=== PATIENT | male | born 1985 | race Caucasian/White ===

== ENCOUNTER 2016-05-05 17:59 | Emergency (ER) | payer BC ==
[2016-05-05 18:23] VITALS: BP 122/73; PULSE 111; TEMP 98.3; BMI 26.4
--- NOTE | 2016-05-05 19:15 | PDOC ---
[id number] LIKE SYMPTOMS Time Seen by Provider: 05/05/16 18:50 History Source: Patient Exam Limitations: No Limitations - History of Present Illness Initial Comments: CHIEF COMPLAINT: 30 y/o afebrile male with 1 prior episode of UTI c/o frequent urination and hematuria for the past few days. HISTORY OF PRESENT ILLNESS: The patient made an appointment to see his urologist but he's away until next sunday. The patient did not want to wait that long to be seen. he is not concerned for STDs. he denies f/c, n/v/d, CP, SOB, abd pain, flank pain, back pain, abnormal penile discharge, testicular pain /swelling. Vital signs on arrival are notable for pulse of 111. REVIEW OF SYSTEMS: GENERAL/CONSTITUTIONAL: No fever/chills. No weakness. No weight change. HEAD, EYES, EARS, NOSE AND THROAT: No change in vision. No ear pain or discharge. No sore throat. CARDIOVASCULAR: No chest pain or shortness of breath. RESPIRATORY: No cough, wheezing, or hemoptysis. GASTROINTESTINAL: No abd pain, nausea, vomiting, diarrhea. GENITOURINARY: +increased urinary frequency and hematuria. No dysuria. MUSCULOSKELETAL: No joint or muscle swelling or pain. No neck or back pain. SKIN: No rash or easy bruising. NEUROLOGIC: No headache, vertigo, loss of consciousness, or loss of sensation. PHYSICAL EXAM: GENERAL: The patient is awake, alert, and fully oriented, in no acute distress. He is well appearing and ambulatory. HEAD: Normal with no signs of trauma. ENT: Pupils equal, round and reactive to light, extraocular movements intact, sclera anicteric, conjunctiva clear. Neck supple. LUNGS: Clear to auscultation bilaterally. Normal excursion. No respiratory distress or use of accessory muscles. CV: RRR, S1/S2, no MRG. Cap refill < 2 sec. ABDOMEN: Soft, non-distended, non-tender even to deep palpation, no hepatomegaly or splenomegaly, no masses. BACK: No CVA TTP b/l. EXTREMITIES: Normal range of motion, no edema. NEUROLOGICAL: Normal speech, normal gait. CN II-XII grossly intact. PSYCH: Normal mood, normal affect. SKIN: Warm, dry, normal turgor, no rashes or lesions noted. Past History - Past Medical History Allergies/Adverse Reactions: Allergies Allergy/AdvReac Type Severity Reaction Status Date / Time No Known Allergies Allergy Verified 05/05/16 18:19 Home Medications: Ambulatory Orders No Home Medications 0 dose .ROUTE UTDICT 07/06/12 Oxycodone HCl/Acetaminophen [Percocet 5-325 mg Tablet] 2 tab PO Q4H #30 tablet 07/16/14 Cardiac Disorders: No CVA: No Suicide Attempt (Hx): No Other medical history: DENIES. - Surgical History Orthopedic Surgery: Yes (LEFT KNEE ARTHROSCOPY) - Psycho/Social/Smoking Cessation Hx Suicidal Ideation: No Smoking Status: No Smoking History: Never smoked Have you smoked in the past 12 months: No Number of Cigarettes Smoked Daily: 0 Hx Alcohol Use: Yes (SOCIALY) Drug/Substance Use Hx: No Substance Use Type: Alcohol *Physical Exam - Vital Signs Last Vital Signs Temp Pulse Resp BP Pulse Ox 98.3 F 111 H 19 122/73 97 05/05/16 18:20 05/05/16 18:20 05/05/16 18:20 05/05/16 18:20 05/05/16 18:20 Medical Decision Making - Medical Decision Making A/P: 30 y/o male with increased urinary frequency and hematuria for the past few days. Plan is as follows: 1. UA/culture 2. GC/chlamydia UA negative for UTI. Pt does not want GC/Chlamydia prophylaxis. Suggested Urology follow up. The patient verbalizes understanding of all instructions, has no further questions and is awaiting discharge. *DC/Admit/Observation/Transfer Diagnosis at time of Disposition: Hematuria, Urinary frequency - Discharge Dispostion Disposition: HOME Condition at time of disposition: Good - Patient Instructions Printed Discharge Instructions: DI for Hematuria Additional Instructions: Discharge Instructions: -Someone will call you on Sunday if your urine culture is positive -Please keep follow up appointment with your urologist scheduled for next week -Return to the ER with any worsening or concerning symptoms
[2016-05-05 20:03] LABS: URINE APPEARANCE CLEAR; URINE BILIRUBIN NEGATIVE (NEGATIVE); URINE BLOOD NEGATIVE (NEGATIVE); URINE COLOR LTYELLOW; URINE GLUCOSE (UA) NEGATIVE (NEGATIVE); URINE KETONE NEGATIVE (NEGATIVE); URINE LEUK ESTERASE NEGATIVE (NEGATIVE); URINE NITRITE NEGATIVE (NEGATIVE); URINE PROTEIN NEGATIVE (NEGATIVE); URINE UROBILINOGEN NEGATIVE E.U./dl (0.2-1.0)
== END 2016-05-05 20:53 | disposition home or self-care (01) ==
LOC: JERFT 17:59
DX: R31.9 Hematuria, unspecified (principal)
CPT/HCPCS: 36415; 81003; 87086; 87491; 87591; 99281-25